=== PATIENT | male | born 1980 | race Caucasian/White ===

== ENCOUNTER 2017-04-22 20:34 | Emergency (ER) | payer SELFPAY ==
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
[2017-04-22 23:00] VITALS: BP 146/90
== END 2017-04-22 23:00 | disposition home or self-care (01) ==
LOC: ER 20:34
DX: F32.9 Major depressive disorder, single episode, unspecified (principal)
CPT/HCPCS: 99284